=== PATIENT | male | born 1995 | race Caucasian/White ===

== ENCOUNTER 2019-12-17 23:41 | Emergency (ER) | payer SELFPAY ==
[2019-12-18 03:49] VITALS: BP 120/72
== END 2019-12-18 03:28 | disposition left against medical advice (07) ==
LOC: ED 23:41
DX: Z53.21 Procedure and treatment not carried out due to patient leaving prior to being seen by health care provider (principal); Z77.098 Contact with and (suspected) exposure to other hazardous, chiefly nonmedicinal, chemicals
CPT/HCPCS: 99281